=== PATIENT | female | born 1965 | race Caucasian/White ===

== ENCOUNTER → 2017-03-25 | Outpatient (CLI) | payer MEDICAID ==
[~2017-03-25] MED LIST: BUSPAR 5 MG TABL5 M1 PO; CEFDINIR300 MG PO; CELEXA40 MG PO; CILOSTAZOL 100100 MG PO; CLONAZEPAM 1 MG1 M1 PO; CYMBALTA30 MG PO; CYPROHEPTADINE 44 MG PO; DEPAKOTE ER500 MG PO; DESYREL50 MG PO; DURAGESIC1 EAC1 TD; FIORICET; FIORICET 50-321 EACH; FLEXERIL PO; FOSAMAX; FOSAMAX 70 MG T70 MG PO; HYDROCHLOROTHIA25 M1 PO; HYDROCODON-ACE1 EAC7 PO; HYDROCODON-ACE1 EAC8 PO; HYDROCODONE-AP1 EAC6 PO; HYOSCYAMIN125 MCG/5 PO; HYOSCYAMIN125 MCG/5 SUBLING; HYOSCYAMINE PO; HYOSCYAMINE0.125 MG PO; HYOSCYAMINE0.375 M2; IMITREX 50 MG T50 M1 PO; KLONOPIN PO; LAMICTAL100 MG PO; LEVSIN SUBLING; LIDODERM 5%1 PATC1 TRANSDERM; LIORESAL 10 MG10 MG PO; LORTAB PO; METHADONE HCL5 MG PO; MOBIC15 MG PO; NEURONTIN600 MG PO; NORCO 7.5-3251 EACH PO; NORTRIPTYLINE H25 M3 PO; PERCOCET PO; PHENERGAN 25 MG25 M1 PO; POTASSIUM20 PO; PRILOSEC 20 MG20 MG PO; PROMETHAZINE12.5 M1 PO; PROPRANOLOL 1010 M1 PO; PROZAC20 MG PO; RELAFEN500 MG PO; REQUIP0.5 MG PO; SUBOXONE 2 MG-1 EAC1 SL; SUBOXONE 8 MG-1 EAC1 SL; SUBOXONE 8 MG-1 EAC3 SL; SYNTHROID25 MCG PO; TESSALON PERLE100 MG PO; TOPAMAX 100 MG100 MG PO; TOPAMAX 25 MG T25 M1 PO; TRAMADOL 50 MG50 MG PO; TRAZODONE 150150 M1 PO; TRAZODONE HCL50 MG PO; VAGIFEM10 MCG VG; VOLTAREN GEL 1100 G2 TOP; ZANAFLEX2 M1 PO; ZANAFLEX4 MG PO; ZANTAC 150MG T150 MG PO
--- NOTE | 2017-03-27 09:35 | PAINCON ---
[address] [address] PAIN MANAGEMENT CONSULTATION Name: CARLOS QUINN [id number] Admission: 03/25/17 Attend Phys: Ronn Hubbard Discharge: Date of : 63 Report #: [id number] THIS REPORT FOR: //name// CC: Sami Salazar DATE OF SERVICE: 03/25/2017 HISTORY OF PRESENT ILLNESS: The patient is a 52-year-old female, long treated for lumbar radiculopathy status post decompressive laminectomy, chronic pain syndrome, neuropathic pain requiring high risk complex medication management. She had issues with opiate escalation in the past. She has been stable on Suboxone 11/12 b.i.d. She did have a left knee arthroscopy on 02/11/2017 and at my direction, had weaned off Suboxone and used hydrocodone per the surgeon. She also has proceeded to have left ulnar nerve transposition and carpal tunnel release 2 weeks ago and is back on hydrocodone, though she notes that pain is increasing. PHYSICAL EXAMINATION: Shows diffuse axial back pain with pain radiating on the right leg. Positive straight leg raise on the right with decreased right lower extremity strength about 3-4/5 versus 4-5/5 for the left leg. Lumbar flexion is limited to 56 degrees. She has a dressing on the left wrist and elbow compatible with the aforementioned ulnar transposition and carpal tunnel surgery on the left arm. We reviewed the fact that opiate medications are being used to provide analgesia adequate to support activities of daily living, not attempting to achieve a specific pain score on the 0-10 Visual Analog Scale. The current opiate medications are providing sufficient analgesia to allow the patient to participate in activities of daily living. The patient is not exhibiting any aberrant behavior suggestive of drug diversion. The patient is not having any adverse reactions to medications. The patient is not suffering from daytime somnolence or mental acuity changes. The patient is managing opiate-induced constipation with appropriate xofm-nsn-cuduzvv agents and dietary considerations. The patient was counseled on concern for caution with operating a motor vehicle while using opiate medications. A physical exam was performed and the patient's functional status was evaluated. All patients with back pain were advised against the bed rest greater than 4 days and were advised to return to normal activities. Pain score assessment was noted and the treatment plan was reviewed with the patient. All current medications, both prescribed and OTC were reviewed and reconciled on the electronic medical record. Tobacco screening was accomplished and smoking cessation was advised when indicated. BMI was noted and diet/exercise modification was recommended for all patients [place] [address] PAIN MANAGEMENT CONSULTATION Name: CARLOS QUINN Room: [facility] TERRY Fuentes#: [id number] Admission: 03/25/17 Attend Phys: Ronn Hubbard Discharge: Date of : 63 Report #: [id number] I reviewed with the patient today their responsibilities to safeguard prescription medications, reviewed their responsibility to utilize medications only as prescribed by the physician. They are to seek and receive pain medications only from 1 physician group ([facility]). They are to use 1 pharmacy and keep the clinic informed if they change pharmacies. Their responsibilities include making followup visits in a timely fashion and to avoid abrupt discontinuation of medication usage. Their responsibilities further include bringing their medications (bottles from the pharmacy with residual pills) to the visit for possible confirmation of pill counts and the patient understands it is their responsibility to submit to random drug screens to ensure both that the medications prescribed are present, and that no other controlled substances are present. All prescriptions provided today were generated electronically. ASSESSMENT: Chronic pain syndrome requiring high risk complex medication management, status post multiple orthopedic surgeries. RECOMMENDATION: Discontinue hydrocodone (she has 1 or 2 tablets left). Resume Suboxone 8/2 at bedtime. She should have 2 weeks of this medication, I did provide another prescription for Suboxone 8/2 b.i.d. 60, either film or tablets depending on insurance coverage. I will see her back in 6 weeks to evaluate ongoing efficacy. Buccal swab was accomplished today, no aberrant behavior suggestive for drug diversion, simply complying with opiate consent to treat contract. It should be positive for hydrocodone as the sole opiate. Acute lumbar radiculopathy, status post lumbar decompressive laminectomy in the distant past. Recommendations: Epidural injection under fluoroscopy today. PROCEDURE: Lumbar epidural injection under fluoroscopy. PROCEDURE NOTE: After both written and informed consent to include risk of spinal cord damage, increased pain, weakness and dural puncture, the patient was taken to the fluoroscopy suite, placed in the prone position. After sterile prep and drape, a skin wheal with lidocaine was raised. A 22-gauge epidural Tuohy needle was inserted in the midline at L3-L4 with good loss to resistance. Negative aspiration for cerebrospinal fluid or blood was noted. Then 1 mL of Omnipaque under biplanar fluoroscopy showed good spread within the epidural space. This was followed with 80 mg of triamcinolone plus 1 mL of 1.5% preservative-free Xylocaine, 0.5 mL Xylocaine was then [place] [address] PAIN MANAGEMENT CONSULTATION Name: CARLOS QUINN Room: [facility]#: [id number] Admission: 03/25/17 Attend Phys: Ronn Hubbard Discharge: Date of : 63 Report #: [id number] needle; it was removed. The patient was monitored for an appropriate period of time and discharged in good and stable condition. <ELECTRONICALLY SIGNED> By: Ian Salazar DO 03/27/17 0935 [id number] Salazar DO /nt
== END | disposition home or self-care (01) ==
LOC: M.PC 02-18 10:00
DX: M54.16 Radiculopathy, lumbar region (principal); G89.4 Chronic pain syndrome; Z79.899 Other long term (current) drug therapy; Z79.891 Long term (current) use of opiate analgesic; Z98.890 Other specified postprocedural states; Z88.6 Allergy status to analgesic agent

== ENCOUNTER → 2017-05-06 | Outpatient (CLI) | payer MEDICAID ==
--- NOTE | 2017-05-07 08:24 | PAINCON ---
[address] [address] PAIN MANAGEMENT CONSULTATION Name: CARLOS QUINN [id number] Admission: 05/06/17 Attend Phys: Ronn Hubbard Discharge: Date of : 63 Report #: [id number] THIS REPORT FOR: //name// CC: Sami Salazar DATE OF SERVICE: 05/06/2017 The patient is a 52-year-old female typically treated for lumbar radiculopathy status post decompressive laminectomy, chronic pain syndrome requiring high-risk complex medication management. The patient has been stable on Suboxone 8/2 b.i.d. for some time, though she tells me now that she feels that she is getting some "shaking and tremor" sensation with this agent. She does have a history of seizure disorder, currently stable on the valproic acid 500 mg, 2 tablets t.i.d. The patient returns to Pain Clinic today. We reviewed her buccal drug swab from 03/26/2017. It was negative for buprenorphine, positive for gabapentin, positive for cotinine. The patient states last buprenorphine tablets about 3 days ago. Rates the pain of 9 on a VAS. States pain is primarily low back and bilateral hips, pain radiating to both legs. She does take baclofen 10 mg t.i.d. with some efficacy. PHYSICAL EXAMINATION: Shows 5 feet 8 inches, 148-pound female, BMI is 22.5 kg/m2. Blood pressure 105/65, pulse 89, respirations 16. Rises from chair using armrest. There is tenderness across the low back. Lower extremity strength is preserved. Straight leg raise is positive bilaterally. Lumbar flexion is limited status post fusion about 1 year ago now. We reviewed the fact that opiate medications are being used to provide analgesia adequate to support activities of daily living, not attempting to achieve a specific pain score on the 0-10 Visual Analog Scale. The current opiate medications are providing sufficient analgesia to allow the patient to participate in activities of daily living. The patient is not exhibiting any aberrant behavior suggestive of drug diversion. The patient is not having any adverse reactions to medications. The patient is not suffering from daytime somnolence or mental acuity changes. The patient is managing opiate-induced constipation with appropriate grdn-kkf-jywuult agents and dietary considerations. The patient was counseled on concern for caution with operating a motor vehicle while using opiate medications. A physical exam was performed and the patient's functional status was evaluated. All patients with back pain were advised against the bed rest greater than 4 days and were advised to return to normal activities[place] [address] PAIN MANAGEMENT CONSULTATION Name: CARLOS QUINN [facility] [id number] Admission: 05/06/17 Attend Phys: Ronn Hubbard Discharge: Date of : 63 Report #: [id number] noted and the treatment plan was reviewed with the patient. All current medications, both prescribed and OTC were reviewed and reconciled on the electronic medical record. Tobacco screening was accomplished and smoking cessation was advised when indicated. BMI was noted and diet/exercise modification was recommended for all patients following outside normal parameters. I reviewed with the patient today their responsibilities to safeguard prescription medications, reviewed their responsibility to utilize medications only as prescribed by the physician. They are to seek and receive pain medications only from 1 physician group ( [facility]). They are to use 1 pharmacy and keep the clinic informed if they change pharmacies. Their responsibilities include making followup visits in a timely fashion and to avoid abrupt discontinuation of medication usage. Their responsibilities further include bringing their medications (bottles from the pharmacy with residual pills) to the visit for possible confirmation of pill counts and the patient understands it is their responsibility to submit to random drug screens to ensure both that the medications prescribed are present, and that no other controlled substances are present. All prescriptions provided today were generated electronically. Long discussion with the patient today about therapeutic options. We had rotated to Suboxone off of methadone due to sedation issues. We had trialed methadone and she had had trouble with controlling opiate use in the past. After a long and thoughtful discussion the patient, we have elected to trial rotating back to hydrocodone 5/325 one tablet 2-3 times a day, limit 75 tablets for 30 days. We will have the patient follow up in 1 month for reevaluation. We will get a buccal swab at that time and follow closely with buccal swabs. Strongly recommend smoking cessation (the patient has decreased from multiple packs a day to half pack a day). We will plan on moving forward with epidural injection under fluoroscopy to help with acute radicular pain if still problematic at next visit. Discharged in good stable condition after moderately prolonged visit spent counseling with patient. <ELECTRONICALLY SIGNED> By: Ian Salazar DO 05/07/17 0824 [id number] [id number] Salazar DO /nt
== END ==
LOC: M.PC 01:26
DX: M54.16 Radiculopathy, lumbar region (principal); G89.4 Chronic pain syndrome; Z98.890 Other specified postprocedural states; Z79.899 Other long term (current) drug therapy

== ENCOUNTER → 2017-06-03 | Outpatient (CLI) | payer MEDICAID ==
--- NOTE | 2017-06-08 07:49 | PAINCON ---
[address] [address] PAIN MANAGEMENT CONSULTATION Name: CARLOS QUINN Room: [facility]#: [id number] Admission: 06/03/17 Attend Phys: Ronn Hubbard Discharge: Date of : 63 Report #: [id number] THIS REPORT FOR: //name// CC: Sami Salazar The patient is a 52-year-old female being treated for lumbar radiculopathy, status post decompressive laminectomy and fusion greater than a year ago; chronic pain syndrome, requiring complex medication management. She has had trouble with dose escalation medication in the past. She has been on methadone in the distant past and most recently been on Suboxone, though she claims that after a year, it started to cause some "jitteriness." Last visit, I reluctantly rotated to hydrocodone. She returns to pain clinic today noting that has been not efficacious. She states that out of the 75 tablets prescribed, she has only taken about 50. It has been 21 days, she is taking two to three a day. She rates her pain fairly high, stating it is a "10" on a VAS. PHYSICAL EXAMINATION: Shows a 52-year-old female, in no acute distress, 5 feet 8 inches, 148 pounds, BMI is 22.6 kilograms per meter squared. Blood pressure 95/69, pulse 101, respirations 16. Continues to smoke "2-3 cigarettes a day." Rises from chair using armrest. Range of motion is subjectively limited, flexion is limited to 45 degrees, modestly positive straight leg raise at 30 degrees on the left. Lower extremity strength, however, is preserved at 4/5 to all muscle groups tested. Gait is minimally antalgic. Skin integument is intact. Discussion with the patient today about therapeutic options. We have elected to continue baclofen 10 mg t.i.d., Cymbalta 60 mg daily, Requip 0.5 at bedtime. After a long discussion, we elected to trial resuming methadone 5 mg one-half to one tablet b.i.d. Continue hydrocodone p.r.n. breakthrough pain, she has 20 tablets left, to be used on a nondaily basis. Follow up in 4 weeks to evaluate efficacy. Discharged in good and stable condition after a moderately prolonged visit, spent counseling the patient, reviewing therapeutic options. We did discuss smoking cessation. Seen for 25+ minute visit. <ELECTRONICALLY SIGNED> By: Ian Salazar DO 06/08/17 0749 1217 [id number] Salazar DO /nt
== END ==
LOC: M.PC 01:44
DX: M54.16 Radiculopathy, lumbar region (principal); G89.4 Chronic pain syndrome; Z98.890 Other specified postprocedural states; Z79.899 Other long term (current) drug therapy

== ENCOUNTER → 2017-07-01 | Outpatient (CLI) | payer MEDICAID ==
--- NOTE | 2017-07-06 07:00 | PAINCON ---
[address] [address] PAIN MANAGEMENT CONSULTATION Name: CARLOS QUINN [id number] Admission: 07/01/17 Attend Phys: Ronn Hubbard Discharge: Date of : 63 Report #: [id number] THIS REPORT FOR: //name// CC: Sami Salazar The patient is a 52-year-old female, long treated for lumbar radiculopathy status post decompressive laminectomy, requiring complex medication management, last seen in the pain clinic 06/03/2017, continued on Requip 0.5 at bedtime, counseled regarding smoking cessation, continued on baclofen 10 mg t.i.d., Cymbalta 60 mg daily. We had rotated from multiple medications. She had prior been on methadone, Suboxone and hydrocodone; last visit, we rotated back to methadone 5 mg a half to one tablet b.i.d. I wrote for 60 tablets. She had 20 hydrocodone tablets, which I enabled her to take for breakthrough pain. She returns to pain clinic today. She notes medication is helpful, the 5 mg methadone is efficacious, she is having some increasing breakthrough pain, back along with bilateral low back, which is actually correlate more with SI pain. She prior had a lumbar fusion at L4-L5 about a year ago. We reviewed the fact that opiate medications are being used to provide analgesia adequate to support activities of daily living, not attempting to achieve a specific pain score on the 0-10 Visual Analog Scale. The current opiate medications are providing sufficient analgesia to allow the patient to participate in activities of daily living. The patient is not exhibiting any aberrant behavior suggestive of drug diversion. The patient is not having any adverse reactions to medications. The patient is not suffering from daytime somnolence or mental acuity changes. The patient is managing opiate-induced constipation with appropriate rntc-aat-drrezxb agents and dietary considerations. The patient was counseled on concern for caution with operating a motor vehicle while using opiate medications. A physical exam was performed and the patient's functional status was evaluated. All patients with back pain were advised against the bed rest greater than 4 days and were advised to return to normal activities. Pain score assessment was noted and the treatment plan was reviewed with the patient. All current medications, both prescribed and OTC were reviewed and reconciled on the electronic medical record. Tobacco screening was accomplished and smoking cessation was advised when indicated. BMI was noted and diet/exercise modification was recommended for all patients following outside normal parameters. I reviewed with the patient today their responsibilities to safeguard prescription medications, reviewed their responsibility to utilize medications only as prescribed by the physician. They are to seek and receive pain medications only from 1 physician group ( [facility]). They are to use 1 pharmacy and keep the clinic informed if [place] [address] PAIN MANAGEMENT CONSULTATION Name: CARLOS QUINN [facility] [id number] Admission: 07/01/17 Attend Phys: Ronn Hubbard Discharge: Date of : 63 Report #: [id number] responsibilities include making followup visits in a timely fashion and to avoid abrupt discontinuation of medication usage. Their responsibilities further include bringing their medications (bottles from the pharmacy with residual pills) to the visit for possible confirmation of pill counts and the patient understands it is their responsibility to submit to random drug screens to ensure both that the medications prescribed are present, and that no other controlled substances are present. All prescriptions provided today were generated electronically. PHYSICAL EXAMINATION: Shows 5 feet 8 inches, 153-pound female, BMI is 23.3 kg/m2, blood pressure is 115/65, pulse 98, respirations are 16. She is alert and oriented to person, place, and time, judged to be a reasonable historian. Rises from chair using armrest. Diffuse tenderness across the low back. She does have tenderness over the SI joints with positive Ivan test bilaterally. Positive pelvic distraction. Positive Gaenslen's test. Lower extremity strength is generally preserved. Straight leg raise is negative at this time. Lower extremity strength is diminished, it is symmetric. Gait is modestly antalgic. Rates her subjective pain score 7 on a VAS, still smoking, she claims down to 2 or 3 cigarettes a day, strongly counseled regarding smoking cessation. ASSESSMENT: 1. Lumbar radiculopathy status post decompressive laminectomy, requiring complex medication management. 2. Acute exacerbation of bilateral sacroiliac mediated pain in this patient status post lumbar fusion L4-L5. RECOMMENDATION: Continue methadone 5 mg, we will increase to t.i.d. with no breakthrough pain; continue baclofen unchanged 10 mg t.i.d., Requip 0.5 at bedtime, Voltaren gel topically, Cymbalta 60 mg daily. 2. Bilateral SI joint injection under fluoroscopy. We talked about core strengthening exercises. Follow up in 1 month for reevaluation. PROCEDURE: Bilateral SI joint injection under fluoroscopy. PROCEDURE NOTE: After written and informed consent was obtained including risk of infection, nerve trauma, increased pain and weakness, the patient wishes to proceed. The patient was taken to the fluoroscopy suite, placed in the prone position. The sacroiliac joint was visualized using the C-arm, turned in an oblique fashion to align the joint. The skin overlying the area was cleansed with ChloraPrep. Skin wheal with Xylocaine was raised. A 22 gauge spinal needle was inserted into the inferior aspect of the joint. A low volume extension tubing was then attached to the needle after the stylet was removed. Negative aspiration was accomplished. A 1 mL of Omnipaque was injected which showed spread within the SI joint. 40 mg triamcinolone plus 2 mL of 0.5% [place] [address] PAIN MANAGEMENT CONSULTATION Name: CARLOS QUINN Room: [facility]#: [id number] Admission: 07/01/17 Attend Phys: Ronn Hubbard Discharge: Date of : 63 Report #: [id number] preservative-free bupivacaine was injected into the joint. Needle was removed. Attention was then turned to the contralateral joint which was treated in an identical fashion. After both needles were removed the prep was washed off. Two Band-Aids were applied over the puncture sites. The patient was allowed to ambulate to the recovery room, monitored for an appropriate period of time, discharged in good and stable condition. <ELECTRONICALLY SIGNED> By: Ian Salazar DO 07/06/17 0700 1355 [id number] Salazar DO /nt
== END | disposition home or self-care (01) ==
LOC: M.PC 01:25
DX: M53.3 Sacrococcygeal disorders, not elsewhere classified (principal); M54.16 Radiculopathy, lumbar region; Z98.890 Other specified postprocedural states; Z79.899 Other long term (current) drug therapy

== ENCOUNTER → 2017-07-29 | Outpatient (CLI) | payer MEDICAID ==
--- NOTE | 2017-08-01 09:57 | PAINCON ---
[facility] [address] [place] [address] PAIN MANAGEMENT CONSULTATION Name: CARLOS QUINN [id number] Admission: 07/29/17 Attend Phys: Ronn Hubbard Discharge: Date of : 63 Report #: [id number] THIS REPORT FOR: //name// CC: Sami Salazar DATE OF SERVICE: 07/29/2017 PAIN CLINIC NOTE The patient is a 52-year-old female typically treated for lumbar radiculopathy status post decompressive laminectomy, component of SI mediated pain requiring complex medication management, last seen in pain clinic on 07/01/2017. She continued on methadone 5 mg t.i.d. (prior rotated from Suboxone). We did bilateral SI joint injections for acute SI mediated pain. She was continued on baclofen 10 mg t.i.d., Cymbalta 60 mg daily. She continues to smoke and was counseled regarding the same. She returns to pain clinic today noting that the SI joint injections may have afford some relief, though she is having ongoing lumbar radicular pain with pain down bilateral legs. She states she is feeling a little systemically ill today. PHYSICAL EXAMINATION: This is a 5 feet 8 inches, 154-pound female. Blood pressure is 113/64, pulse 76, respirations are 18. Subjective pain score is 8 on a VAS. Rises from chair using armrest, modestly antalgic gait, diffuse tenderness across the low back, positive straight leg raise bilaterally. Lower extremity strength is diminished, but symmetric. A well-healed surgical scar compatible with prior effusion. We reviewed the fact that opiate medications are being used to provide analgesia adequate to support activities of daily living, not attempting to achieve a specific pain score on the 0-10 Visual Analog Scale. The current opiate medications are providing sufficient analgesia to allow the patient to participate in activities of daily living. The patient is not exhibiting any aberrant behavior suggestive of drug diversion. The patient is not having any adverse reactions to medications. The patient is not suffering from daytime somnolence or mental acuity changes. The patient is managing opiate-induced constipation with appropriate xfxp-asx-wicstaf agents and dietary considerations. The patient was counseled on concern for caution with operating a motor vehicle while using opiate medications. A physical exam was performed and the patient's functional status was evaluated. All patients with back pain were advised against the bed rest greater than 4 days and were advised to return to normal activities. Pain score assessment was noted and the treatment plan was reviewed with the patient. All current medications, both prescribed and OTC were reviewed and reconciled on the electronic medical record. Tobacco screening [place] [address] PAIN MANAGEMENT CONSULTATION Name: CARLOS QUINN Room: [facility]#: [id number] Admission: 07/29/17 Attend Phys: Ronn Hubbard Discharge: Date of : 63 Report #: [id number] cessation was advised when indicated. BMI was noted and diet/exercise modification was recommended for all patients following outside normal parameters. I reviewed with the patient today their responsibilities to safeguard prescription medications, reviewed their responsibility to utilize medications only as prescribed by the physician. They are to seek and receive pain medications only from 1 physician group ( [facility]). They are to use 1 pharmacy and keep the clinic informed if they change pharmacies. Their responsibilities include making followup visits in a timely fashion and to avoid abrupt discontinuation of medication usage. Their responsibilities further include bringing their medications (bottles from the pharmacy with residual pills) to the visit for possible confirmation of pill counts and the patient understands it is their responsibility to submit to random drug screens to ensure both that the medications prescribed are present, and that no other controlled substances are present. All prescriptions provided today were generated electronically. ASSESSMENT: Symptomatic lumbar radiculopathy status post decompressive laminectomy, chronic pain syndrome requiring complex medication management. RECOMMENDATIONS: 1. Continue methadone 5 mg t.i.d., baclofen 10 mg t.i.d. 2. Follow up in 4 weeks for reevaluation. 3. Consider lumbar epidural injection under fluoroscopy if indicated for ongoing radicular symptoms at that time. <ELECTRONICALLY SIGNED> By: Ian Salazar DO 08/01/17 0957 [id number] Salazar DO /nt
== END ==
LOC: M.PC 02:55
DX: M54.16 Radiculopathy, lumbar region (principal); G89.29 Other chronic pain; Z79.899 Other long term (current) drug therapy

== ENCOUNTER → 2017-08-26 | Outpatient (CLI) | payer MEDICAID ==
--- NOTE | 2017-08-27 07:19 | PAINCON ---
[facility] [address] [place] [address] PAIN MANAGEMENT CONSULTATION Name: CARLOS QUINN Room: [facility] Alfredo#: [id number] Admission: 08/26/17 Attend Phys: Ronn Hubbard Discharge: Date of : 63 Report #: [id number] THIS REPORT FOR: //name// CC: Sami Salazar DATE OF SERVICE: 08/26/2017 HISTORY OF PRESENT ILLNESS: The patient is a 52-year-old female being treated for lumbar radiculopathy status post decompressive laminectomy, chronic pain syndrome requiring complex medication management. She has been relatively stable on current medications. She prior had troubles with opiate escalation (greater than prescribed). We had rotated to Suboxone for a period of time and she did reasonably well with this. After a long and thoughtful discussion in April of this year, we trialed rotating back to hydrocodone for pain. She felt that Suboxone starting some "shaking and tremor behavior." She does have a seizure disorder, treated with valproic acid. We rotated back to hydrocodone at that time with baclofen for spasm. Followup on 06/03/2017. We resume methadone low dose 5 mg starting 0.5 mg b.i.d. ultimately titrating up to t.i.d. and this has been efficacious. We elected to not continue with p.r.n. hydrocodone due to the prior issue with opiate escalation. She was last seen in the pain clinic 07/29/2017, doing a reasonably well on current medications. We will continue medications unchanged. He returns to the pain clinic today noting axial back pain starting to recur along with lumbar radicular pain radiating into the bilateral buttocks down in L5 distribution. She is status post lumbar decompressive laminectomy and fusion, L4-L5. She has some classic L5 mediated pain with flexion and extension. There may be some dynamic movement in the L5-S1 area causing pinching of the L5 nerve roots. We reviewed the fact that opiate medications are being used to provide analgesia adequate to support activities of daily living, not attempting to achieve a specific pain score on the 0-10 Visual Analog Scale. The current opiate medications are providing sufficient analgesia to allow the patient to participate in activities of daily living. The patient is not exhibiting any aberrant behavior suggestive of drug diversion. The patient is not having any adverse reactions to medications. The patient is not suffering from daytime somnolence or mental acuity changes. The patient is managing opiate-induced constipation with appropriate ttxd-qib-zwshfdo agents and dietary considerations. The patient was counseled on concern for caution with operating a motor vehicle while using opiate medications. A physical exam was performed and the patient's [place] [address] PAIN MANAGEMENT CONSULTATION Name: CARLOS QUINN [id number] Admission: 08/26/17 Attend Phys: Ronn Hubbard Discharge: Date of : 63 Report #: [id number] All patients with back pain were advised against the bed rest greater than 4 days and were advised to return to normal activities. Pain score assessment was noted and the treatment plan was reviewed with the patient. All current medications, both prescribed and OTC were reviewed and reconciled on the electronic medical record. Tobacco screening was accomplished and smoking cessation was advised when indicated. BMI was noted and diet/exercise modification was recommended for all patients following outside normal parameters. I reviewed with the patient today their responsibilities to safeguard prescription medications, reviewed their responsibility to utilize medications only as prescribed by the physician. They are to seek and receive pain medications only from 1 physician group ( [facility]). They are to use 1 pharmacy and keep the clinic informed if they change pharmacies. Their responsibilities include making followup visits in a timely fashion and to avoid abrupt discontinuation of medication usage. Their responsibilities further include bringing their medications (bottles from the pharmacy with residual pills) to the visit for possible confirmation of pill counts and the patient understands it is their responsibility to submit to random drug screens to ensure both that the medications prescribed are present, and that no other controlled substances are present. All prescriptions provided today were generated electronically. ASSESSMENT: Symptomatic lumbar radiculopathy, status post decompressive laminectomy requiring complex medication management. RECOMMENDATIONS: 1. Lumbar epidural injection under fluoroscopy at L5-S1. 2. Continue methadone 5 mg t.i.d., I have taken the liberty of writing for 90 tablets with release today, 4 weeks and 8 weeks. I did tell the patient I am leaving the practice and she will need to contact her insurance provider and find another pain clinic to manage her care. We will be happy to send her medical records where needed. PROCEDURE: Lumbar epidural injection under fluoroscopy. PROCEDURE NOTE: After both written and informed consent to include risk of spinal cord damage, increased pain, weakness and dural puncture, the patient was taken to the fluoroscopy suite, placed in the prone position. After sterile prep and drape, a skin wheal with lidocaine was raised. A 22-gauge epidural Tuohy needle was inserted in the midline at L5-S1 with good loss to resistance. Negative aspiration for cerebrospinal fluid or blood was noted. Then 1 mL of Omnipaque under biplanar fluoroscopy showed good spread within the epidural space. This was followed with 80 mg of triamcinolone plus 1 mL of 1.5% preservative-free Xylocaine, 0.5 mL Xylocaine was [place] [address] PAIN MANAGEMENT CONSULTATION Name: CARLOS QUINN Room: [facility]#: [id number] Admission: 08/26/17 Attend Phys: Ronn Hubbard Discharge: Date of : 63 Report #: [id number] needle; it was removed. The patient was monitored for an appropriate period of time and discharged in good and stable condition. <ELECTRONICALLY SIGNED> By: Ian Salazar DO 08/27/17 0719 [id number] Salazar DO /nt
== END | disposition home or self-care (01) ==
LOC: M.PC 03:37
DX: M54.16 Radiculopathy, lumbar region (principal); G89.29 Other chronic pain; Z98.890 Other specified postprocedural states; Z79.899 Other long term (current) drug therapy